=== PATIENT | male | born 1980 | race Caucasian/White ===

== ENCOUNTER 2018-12-16 13:00 | Outpatient (RCR) | payer BC ==
[2018-11-04 13:44] LABS: HEMATOCRIT 42.8 % (42.0-52.0); HEMOGLOBIN 13.7 g/dl (13.5-18.0); MEAN CELL VOLUME 89 fl (80.0-100.0); MEAN CORPUSCULAR HEMOGLOBIN 28 pg (27.0-31.0); MEAN CORPUSCULAR HGB CONC 32 g/dl (33.0-37.0); MEAN PLATELET VOLUME 11.2 fl (7.4-10.4); PLATELET COUNT 263 K/mm3 (130-400); RED BLOOD COUNT 4.82 M/mm3 (4.20-5.60); REDCELL DISTRIBUTION WIDTH-CV 15.2 % (11.5-14.5)
[2018-11-04 13:55] LABS: BILIRUBIN,TOTAL 0.3 mg/dL (0.0-1.0); CALCIUM 9.1 mg/dL (8.4-10.2); CREATININE, serum 0.82 (0.66-1.25); POTASSIUM 4.1 mmol/L (3.4-5.0); TOTAL PROTEIN 7.4 gm/dL (6.4-8.2)
[2018-11-04 15:00] VITALS: BP 132/80; PULSE 84; TEMP 98.7
[2018-11-18 13:00] VITALS: BP 124/82; PULSE 85; TEMP 98.7
[2018-11-18 13:27] LABS: HEMATOCRIT 42.4 % (42.0-52.0); HEMOGLOBIN 13.3 g/dl (13.5-18.0); MEAN CELL VOLUME 90 fl (80.0-100.0); MEAN CORPUSCULAR HEMOGLOBIN 28 pg (27.0-31.0); MEAN CORPUSCULAR HGB CONC 31 g/dl (33.0-37.0); MEAN PLATELET VOLUME 11.5 fl (7.4-10.4); PLATELET COUNT 203 K/mm3 (130-400); RED BLOOD COUNT 4.72 M/mm3 (4.20-5.60); REDCELL DISTRIBUTION WIDTH-CV 15.8 % (11.5-14.5)
[2018-11-18 13:38] LABS: BILIRUBIN,TOTAL 0.5 mg/dL (0.0-1.0); CREATININE, serum 0.93 (0.66-1.25); POTASSIUM 3.9 mmol/L (3.4-5.0); TOTAL PROTEIN 7.3 gm/dL (6.4-8.2)
--- NOTE | 2018-11-18 15:28 | NUR ---
Pt has no signs or symptoms of an adverse reaction after this infusion. Encouraged pt to watch closely for hives and weight gain by stopping his supplements, daily weights and when hives appear. Pt aware.
[~2018-12-16] VITALS: Ht 180.3 cm; Wt 86.5 kg
[~2018-12-16 13:00] MED LIST: ADDERALL10 MG PO; APRISO0.375 GM PO; ASACOL; ASACOL PO; HUMIRA40 MG/0.1 SC; IMURAN 50MG TAB50 MG PO; LEXAPRO 10MG10 MG PO; LIALDA 1.2 GM1.2 GM PO; MULTI VITAMINS1 TAB PO; MULTIPLE VITAMI1 CAP PO; NORCO 325 MG-51 TAB PO; NORCO 325 MG-7.1 TAB PO; OMEGA-3 1000 MG1 CAP PO; PREDNISONE 5MG5 MG PO; ULTRAM 50MG TAB50 MG PO; [UNRECOGNIZED DRUG - OTHER]; [UNRECOGNIZED DRUG - OTHER]
[2018-12-16 13:23] LABS: HEMATOCRIT 44.4 % (42.0-52.0); HEMOGLOBIN 14.2 g/dl (13.5-18.0); MEAN CELL VOLUME 89 fl (80.0-100.0); MEAN CORPUSCULAR HEMOGLOBIN 29 pg (27.0-31.0); MEAN CORPUSCULAR HGB CONC 32 g/dl (33.0-37.0); MEAN PLATELET VOLUME 11.2 fl (7.4-10.4); PLATELET COUNT 234 K/mm3 (130-400); RED BLOOD COUNT 4.99 M/mm3 (4.20-5.60); REDCELL DISTRIBUTION WIDTH-CV 14.3 % (11.5-14.5)
[2018-12-16 13:27] LABS: ALBUMIN 4.3 gm/dL (3.5-5.0); BILIRUBIN,TOTAL 0.4 mg/dL (0.0-1.0); CALCIUM 9.2 mg/dL (8.4-10.2); CREATININE, serum 0.97 (0.66-1.25); POTASSIUM 3.9 mmol/L (3.4-5.0); TOTAL PROTEIN 7.8 gm/dL (6.4-8.2)
[2018-12-16 15:20] VITALS: BP 125/75; PULSE 81; TEMP 98.3
[2018-12-16 15:50] VITALS: BP 128/79; PULSE 86; TEMP 98.3
== END 2018-12-16 16:00 | disposition home or self-care (01) ==
LOC: EUO 13:00
PROVIDERS: Internal Medicine Gastroenterology
DX: K51.90 Ulcerative colitis, unspecified, without complications (principal); Z79.899 Other long term (current) drug therapy
CPT/HCPCS: J1200; J2920; J3380; J7050

== ENCOUNTER → 2019-02-17 | Outpatient (CLI) | payer BC ==
[~2019-02-17] VITALS: Ht 180.3 cm; Wt 92.0 kg
[2019-02-17 13:14] LABS: HEMATOCRIT 42.1 % (42.0-52.0); HEMOGLOBIN 13.4 g/dl (13.5-18.0); MEAN CELL VOLUME 88 fl (80.0-100.0); MEAN CORPUSCULAR HEMOGLOBIN 28 pg (27.0-31.0); MEAN CORPUSCULAR HGB CONC 32 g/dl (33.0-37.0); MEAN PLATELET VOLUME 12.2 fl (7.4-10.4); PLATELET COUNT 179 K/mm3 (130-400); REDCELL DISTRIBUTION WIDTH-CV 13.3 % (11.5-14.5)
[2019-02-17 13:22] LABS: ALBUMIN 4.2 gm/dL (3.5-5.0); BILIRUBIN,TOTAL 0.4 mg/dL (0.0-1.0); CREATININE, serum 0.76 (0.66-1.25); POTASSIUM 3.9 mmol/L (3.4-5.0); TOTAL PROTEIN 7.4 gm/dL (6.4-8.2)
[2019-02-17 14:10] VITALS: BP 120/75; PULSE 72; TEMP 97.8
== END ==
LOC: EUO 12:40
PROVIDERS: Internal Medicine Gastroenterology
DX: K51.90 Ulcerative colitis, unspecified, without complications (principal); Z79.899 Other long term (current) drug therapy
CPT/HCPCS: J1200; J2930; J3380; J7050

== ENCOUNTER 2019-04-14 12:40 | Outpatient (CLI) | payer BC ==
[~2019-04-14] VITALS: Ht 180.3 cm; Wt 95.4 kg
[2019-04-14 13:05] LABS: HEMATOCRIT 42.2 % (42.0-52.0); MEAN CELL VOLUME 86 fl (80.0-100.0); MEAN CORPUSCULAR HEMOGLOBIN 29 pg (27.0-31.0); MEAN CORPUSCULAR HGB CONC 33 g/dl (33.0-37.0); MEAN PLATELET VOLUME 11.5 fl (7.4-10.4); PLATELET COUNT 224 K/mm3 (130-400); RED BLOOD COUNT 4.89 M/mm3 (4.20-5.60); REDCELL DISTRIBUTION WIDTH-CV 14.2 % (11.5-14.5)
[2019-04-14 13:16] LABS: ALBUMIN 4.2 gm/dL (3.5-5.0); BILIRUBIN,TOTAL 0.4 mg/dL (0.0-1.0); CALCIUM 9.1 mg/dL (8.4-10.2); CREATININE, serum 0.81 (0.66-1.25); TOTAL PROTEIN 7.2 gm/dL (6.4-8.2)
[2019-04-14 14:32] VITALS: BP 115/70; PULSE 65; TEMP 98
[2019-04-14 15:00] VITALS: BP 107/66; PULSE 70; TEMP 97
== END 2019-04-14 15:17 | disposition home or self-care (01) ==
LOC: EUO 12:40
PROVIDERS: Internal Medicine Gastroenterology
DX: K51.90 Ulcerative colitis, unspecified, without complications (principal); Z79.899 Other long term (current) drug therapy
CPT/HCPCS: J1200; J2930; J3380; J7050

== ENCOUNTER 2019-06-13 08:55 | Outpatient (CLI) | payer BC ==
[~2019-06-13] VITALS: Ht 180.3 cm; Wt 95.9 kg
[2019-06-13 09:25] VITALS: BP 108/53; PULSE 70; TEMP 98.4
[2019-06-13 09:31] LABS: HEMATOCRIT 44.5 % (42.0-52.0); HEMOGLOBIN 14.6 g/dl (13.5-18.0); MEAN CELL VOLUME 87 fl (80.0-100.0); MEAN CORPUSCULAR HEMOGLOBIN 29 pg (27.0-31.0); MEAN CORPUSCULAR HGB CONC 33 g/dl (33.0-37.0); MEAN PLATELET VOLUME 11.8 fl (7.4-10.4); PLATELET COUNT 209 K/mm3 (130-400); RED BLOOD COUNT 5.13 M/mm3 (4.20-5.60); REDCELL DISTRIBUTION WIDTH-CV 12.9 % (11.5-14.5)
[2019-06-13 09:43] LABS: ALBUMIN 4.1 gm/dL (3.5-5.0); BILIRUBIN,TOTAL 0.6 mg/dL (0.0-1.0); CALCIUM 9.1 mg/dL (8.4-10.2); CREATININE, serum 0.84 (0.66-1.25); POTASSIUM 4.3 mmol/L (3.4-5.0)
[2019-06-13 10:45] VITALS: BP 108/53; PULSE 70; TEMP 98.4
[2019-06-13 11:00] VITALS: BP 120/77; PULSE 55; TEMP 98
[2019-06-13 11:15] VITALS: BP 113/75; PULSE 65; TEMP 98.4
== END 2019-06-13 16:00 | disposition home or self-care (01) ==
LOC: EUO 08:55
PROVIDERS: Internal Medicine Gastroenterology
DX: K51.90 Ulcerative colitis, unspecified, without complications (principal); Z79.899 Other long term (current) drug therapy
CPT/HCPCS: J1200; J2920; J3380; J7050

== ENCOUNTER 2019-10-16 09:00 | Outpatient (RCR) | payer BC ==
[2019-10-08 14:15] LABS: HEMATOCRIT 44.9 % (42.0-52.0); HEMOGLOBIN 14.7 g/dl (13.5-18.0); MEAN CELL VOLUME 87 fl (80.0-100.0); MEAN CORPUSCULAR HEMOGLOBIN 28 pg (27.0-31.0); MEAN CORPUSCULAR HGB CONC 33 g/dl (33.0-37.0); MEAN PLATELET VOLUME 11.1 fl (7.4-10.4); PLATELET COUNT 234 K/mm3 (130-400); RED BLOOD COUNT 5.19 M/mm3 (4.20-5.60); REDCELL DISTRIBUTION WIDTH-CV 13.3 % (11.5-14.5)
[2019-10-08 14:24] LABS: ALBUMIN 4.6 gm/dL (3.5-5.0); BILIRUBIN,TOTAL 0.4 mg/dL (0.0-1.0); CALCIUM 9.2 mg/dL (8.4-10.2); CREATININE, serum 0.81 (0.66-1.25); TOTAL PROTEIN 7.9 gm/dL (6.4-8.2)
--- NOTE | 2019-10-08 15:00 | NUR ---
NOTIFIED FROM PHARMACY THAT THE PT'S MEDICATION DID NOT ARRIVE TO OUR PHARMACY AND WE ARE UNABLE TO INFUSE TODAY. PT AWARE AND WILL CALL HIS PHARMACY TO SEE WHAT HAPPENED. PT WILL BE RESCHEDULED FOR 10/16/2019. IV WAS DISCONTINUED WITH CATHETER TIP INTACT. LAB ORDERS WERE CANCELLED. PRE MEDICATIONS RETURNED TO [facility].
[~2019-10-16] VITALS: Ht 180.3 cm; Wt 98.6 kg
[2019-10-16 09:00] VITALS: BP 139/86; PULSE 70; TEMP 98.2
[2019-10-16] MEDS ORDERED: TYLENOL 8 HR PO (09:14)
== END 2019-10-16 19:05 | disposition home or self-care (01) ==
LOC: EUO 09:00
PROVIDERS: Internal Medicine Gastroenterology
DX: K51.90 Ulcerative colitis, unspecified, without complications (principal); Z79.899 Other long term (current) drug therapy
CPT/HCPCS: J1200; J2920; J3380; J7050

== ENCOUNTER 2019-12-11 09:54 | Outpatient (CLI) | payer BC ==
[~2019-12-11 09:54] MED LIST changes: +TYLENOL 8 HR PO
[2019-12-11 10:19] LABS: HEMATOCRIT 43.6 % (42.0-52.0); HEMOGLOBIN 14.2 g/dl (13.5-18.0); MEAN CELL VOLUME 88 fl (80.0-100.0); MEAN CORPUSCULAR HEMOGLOBIN 29 pg (27.0-31.0); MEAN CORPUSCULAR HGB CONC 33 g/dl (33.0-37.0); PLATELET COUNT 228 K/mm3 (130-400); RED BLOOD COUNT 4.98 M/mm3 (4.20-5.60); REDCELL DISTRIBUTION WIDTH-CV 12.9 % (11.5-14.5)
[2019-12-11 10:30] LABS: ALBUMIN 4.2 gm/dL (3.5-5.0); BILIRUBIN,TOTAL 0.4 mg/dL (0.0-1.0); CREATININE, serum 0.9 (0.66-1.25); POTASSIUM 4.4 mmol/L (3.4-5.0); TOTAL PROTEIN 7.3 gm/dL (6.4-8.2)
[2019-12-11 11:05] VITALS: BP 139/82; PULSE 65; TEMP 98.2
== END 2019-12-11 17:33 | disposition home or self-care (01) ==
LOC: EUO 09:54
PROVIDERS: Internal Medicine Gastroenterology
DX: K51.90 Ulcerative colitis, unspecified, without complications (principal); Z79.899 Other long term (current) drug therapy
CPT/HCPCS: J1200; J2920; J7050

== ENCOUNTER 2020-02-09 11:24 | Outpatient (CLI) | payer BC ==
[~2020-02-09] VITALS: Ht 180.3 cm; Wt 95.2 kg
[2020-02-09 11:46] LABS: HEMATOCRIT 43.2 % (42.0-52.0); HEMOGLOBIN 14.2 g/dl (13.5-18.0); MEAN CELL VOLUME 87 fl (80.0-100.0); MEAN CORPUSCULAR HEMOGLOBIN 29 pg (27.0-31.0); MEAN CORPUSCULAR HGB CONC 33 g/dl (33.0-37.0); PLATELET COUNT 245 K/mm3 (130-400); RED BLOOD COUNT 4.98 M/mm3 (4.20-5.60)
[2020-02-09 12:15] LABS: ALBUMIN 4.4 gm/dL (3.5-5.0); BILIRUBIN,TOTAL 0.5 mg/dL (0.0-1.0); CALCIUM 9.1 mg/dL (8.4-10.2); CREATININE, serum 0.89 (0.66-1.25); POTASSIUM 4.2 mmol/L (3.4-5.0); TOTAL PROTEIN 7.6 gm/dL (6.4-8.2)
[2020-02-09] MEDS ORDERED: ADDERALL10 MG PO (12:55)
[2020-02-09] MEDS ORDERED: FLEXERIL 1010 MG/TAB PO (12:55)
[2020-02-09] MEDS ORDERED: TYLENOL PO (12:56)
[2020-02-09] MEDS ORDERED: ADVIL PO (12:56)
[2020-02-09 12:57] VITALS: BP 134/88; PULSE 83; TEMP 98.7
[2020-02-09 13:20] VITALS: BP 144/85; PULSE 91; TEMP 98.7
== END 2020-02-09 13:25 | disposition home or self-care (01) ==
LOC: EUO 11:24
PROVIDERS: Internal Medicine Gastroenterology
DX: K51.90 Ulcerative colitis, unspecified, without complications (principal); Z79.899 Other long term (current) drug therapy
CPT/HCPCS: J1200; J2920; J3380; J7050

== ENCOUNTER 2020-04-05 13:48 | Outpatient (CLI) | payer BC ==
[~2020-04-05] VITALS: Ht 180.3 cm; Wt 94.3 kg
[~2020-04-05 13:48] MED LIST changes: +ADVIL PO; +FLEXERIL 1010 MG/TAB PO; +TYLENOL PO
[2020-04-05 14:17] LABS: HEMATOCRIT 43.1 % (42.0-52.0); HEMOGLOBIN 14.6 g/dl (13.5-18.0); MEAN CELL VOLUME 85 fl (80.0-100.0); MEAN CORPUSCULAR HEMOGLOBIN 29 pg (27.0-31.0); MEAN CORPUSCULAR HGB CONC 34 g/dl (33.0-37.0); MEAN PLATELET VOLUME 10.8 fl (7.4-10.4); PLATELET COUNT 307 K/mm3 (130-400); RED BLOOD COUNT 5.07 M/mm3 (4.20-5.60); REDCELL DISTRIBUTION WIDTH-CV 13.5 % (11.5-14.5)
[2020-04-05 14:27] LABS: ALBUMIN 4.6 gm/dL (3.5-5.0); BILIRUBIN,TOTAL 0.5 mg/dL (0.0-1.0); CALCIUM 9.3 mg/dL (8.4-10.2); CREATININE, serum 0.88 (0.66-1.25); POTASSIUM 3.7 mmol/L (3.4-5.0); TOTAL PROTEIN 7.8 gm/dL (6.4-8.2)
[2020-04-05 15:30] VITALS: BP 131/80; PULSE 83; TEMP 98.3
[2020-04-05 16:45] VITALS: BP 147/91; PULSE 82
[2020-04-05 17:00] VITALS: BP 146/81; PULSE 82
== END 2020-04-05 17:15 | disposition home or self-care (01) ==
LOC: EUO 13:48
PROVIDERS: Internal Medicine Gastroenterology
DX: K51.90 Ulcerative colitis, unspecified, without complications (principal); Z79.899 Other long term (current) drug therapy
CPT/HCPCS: J1200; J2920; J3380; J7050

== ENCOUNTER 2020-06-14 14:00 | Outpatient (RCR) | payer BC ==
[2020-06-07 13:43] LABS: HEMATOCRIT 40.6 % (42.0-52.0); HEMOGLOBIN 13.7 g/dl (13.5-18.0); MEAN CELL VOLUME 84 fl (80.0-100.0); MEAN CORPUSCULAR HEMOGLOBIN 28 pg (27.0-31.0); MEAN CORPUSCULAR HGB CONC 34 g/dl (33.0-37.0); MEAN PLATELET VOLUME 11.1 fl (7.4-10.4); PLATELET COUNT 279 K/mm3 (130-400); RED BLOOD COUNT 4.84 M/mm3 (4.20-5.60); REDCELL DISTRIBUTION WIDTH-CV 12.8 % (11.5-14.5)
[2020-06-07 14:04] LABS: ALBUMIN 4.2 gm/dL (3.5-5.0); BILIRUBIN,TOTAL 0.6 mg/dL (0.0-1.0); CALCIUM 8.8 mg/dL (8.4-10.2); CREATININE, serum 1.03 (0.66-1.25); POTASSIUM 3.9 mmol/L (3.4-5.0); TOTAL PROTEIN 7.2 gm/dL (6.4-8.2)
--- NOTE | 2020-06-07 14:23 | NUR ---
pt does not have med in pharmacy today, pt called his pharmacy/insurance provider, he spoke with them, confirmed phone numbers/address to hospital, drug is to arrive Sunday, pt appt will be jun 14 at 1400.
[~2020-06-14] VITALS: Ht 180.3 cm; Wt 98.0 kg
[~2020-06-14 14:00] MED LIST changes: +NEURONTIN300 MG/CAP PO
--- NOTE | 2020-06-14 14:34 | NUR ---
rEPORT TO Shraddha Shepherd.
[2020-06-14 14:39] VITALS: BP 143/93; PULSE 97; TEMP 98.7
[2020-06-14 15:22] VITALS: BP 141/90; PULSE 78; TEMP 98.7
== END 2020-06-14 15:26 | disposition home or self-care (01) ==
LOC: EUO 14:00
PROVIDERS: Internal Medicine Gastroenterology
DX: K51.90 Ulcerative colitis, unspecified, without complications (principal); Z79.899 Other long term (current) drug therapy
CPT/HCPCS: J1200; J2930; J3380; J7050

== ENCOUNTER 2020-08-09 13:50 | Outpatient (CLI) | payer BC ==
[~2020-08-09] VITALS: Ht 180.3 cm; Wt 100.4 kg
[2020-08-09 14:26] LABS: HEMATOCRIT 44.8 % (42.0-52.0); HEMOGLOBIN 14.1 g/dl (13.5-18.0); MEAN CELL VOLUME 86 fl (80.0-100.0); MEAN CORPUSCULAR HEMOGLOBIN 27 pg (27.0-31.0); MEAN CORPUSCULAR HGB CONC 32 g/dl (33.0-37.0); MEAN PLATELET VOLUME 10.8 fl (7.4-10.4); PLATELET COUNT 265 K/mm3 (130-400); RED BLOOD COUNT 5.19 M/mm3 (4.20-5.60)
[2020-08-09 14:49] LABS: ALBUMIN 4.3 gm/dL (3.5-5.0); BILIRUBIN,TOTAL 0.1 mg/dL (0.0-1.0); CALCIUM 9.4 mg/dL (8.4-10.2); CREATININE, serum 0.89 (0.66-1.25); POTASSIUM 3.9 mmol/L (3.4-5.0); TOTAL PROTEIN 7.9 gm/dL (6.4-8.2)
[2020-08-09 14:55] VITALS: BP 124/80; PULSE 78; TEMP 98.5
[2020-08-09] MEDS ORDERED: ENTYVIO IV (15:49)
== END 2020-08-09 15:50 | disposition home or self-care (01) ==
LOC: EUO 13:50
PROVIDERS: Internal Medicine Gastroenterology
DX: K50.90 Crohn's disease, unspecified, without complications (principal); Z79.899 Other long term (current) drug therapy
CPT/HCPCS: J1200; J2930; J3380; J7050

== ENCOUNTER 2020-10-04 13:45 | Outpatient (CLI) | payer BC ==
[~2020-10-04] VITALS: Ht 180.3 cm; Wt 98.0 kg
[~2020-10-04 13:45] MED LIST changes: +ENTYVIO IV
[2020-10-04 14:13] LABS: HEMATOCRIT 37.5 % (42.0-52.0); HEMOGLOBIN 12.1 g/dl (13.5-18.0); MEAN CELL VOLUME 84 fl (80.0-100.0); MEAN CORPUSCULAR HEMOGLOBIN 27 pg (27.0-31.0); MEAN CORPUSCULAR HGB CONC 32 g/dl (33.0-37.0); MEAN PLATELET VOLUME 10.7 fl (7.4-10.4); PLATELET COUNT 272 K/mm3 (130-400); RED BLOOD COUNT 4.49 M/mm3 (4.20-5.60)
[2020-10-04 14:23] LABS: ALBUMIN 3.7 gm/dL (3.5-5.0); BILIRUBIN,TOTAL 0.3 mg/dL (0.0-1.0); CALCIUM 8.5 mg/dL (8.4-10.2); CREATININE, serum 0.91 (0.66-1.25); POTASSIUM 3.8 mmol/L (3.4-5.0); TOTAL PROTEIN 6.7 gm/dL (6.4-8.2)
[2020-10-04] MEDS ORDERED: DESYREL 50MG50 MG PO (14:34)
[2020-10-04 14:35] VITALS: BP 122/73; PULSE 69; TEMP 98.5
[2020-10-04 15:22] VITALS: BP 122/77; PULSE 65
[2020-10-04 15:36] VITALS: BP 124/86; PULSE 60
== END 2020-10-04 16:35 | disposition home or self-care (01) ==
LOC: EUO 13:45
PROVIDERS: Internal Medicine Gastroenterology
DX: K50.90 Crohn's disease, unspecified, without complications (principal); Z79.899 Other long term (current) drug therapy
CPT/HCPCS: J1200; J2920; J3380; J7050

== ENCOUNTER 2020-12-06 13:18 | Outpatient (CLI) | payer BC ==
[~2020-12-06] VITALS: Ht 180.3 cm; Wt 90.9 kg
[~2020-12-06 13:18] MED LIST changes: +DESYREL 50MG50 MG PO
[2020-12-06 14:18] LABS: HEMATOCRIT 39.7 % (42.0-52.0); HEMOGLOBIN 12.7 g/dl (13.5-18.0); MEAN CELL VOLUME 83 fl (80.0-100.0); MEAN CORPUSCULAR HEMOGLOBIN 27 pg (27.0-31.0); MEAN CORPUSCULAR HGB CONC 32 g/dl (33.0-37.0); MEAN PLATELET VOLUME 10.8 fl (7.4-10.4); PLATELET COUNT 286 K/mm3 (130-400); RED BLOOD COUNT 4.76 M/mm3 (4.20-5.60); REDCELL DISTRIBUTION WIDTH-CV 14.9 % (11.5-14.5)
[2020-12-06 14:23] LABS: ALBUMIN 4.1 gm/dL (3.5-5.0); BILIRUBIN,TOTAL 0.4 mg/dL (0.0-1.0); CALCIUM 8.6 mg/dL (8.4-10.2); CREATININE, serum 0.99 (0.66-1.25); POTASSIUM 4.1 mmol/L (3.4-5.0); TOTAL PROTEIN 6.8 gm/dL (6.4-8.2)
[2020-12-06 15:02] VITALS: BP 132/80; PULSE 84; TEMP 98.7
[2020-12-06] MEDS ORDERED: PREDNISONE 5MG5 MG PO (15:08)
[2020-12-06 15:35] VITALS: BP 134/79; PULSE 76
== END 2020-12-06 19:16 | disposition home or self-care (01) ==
LOC: EUO 13:18
PROVIDERS: Internal Medicine Gastroenterology
DX: K51.90 Ulcerative colitis, unspecified, without complications (principal)
CPT/HCPCS: J1200; J3380; J7050

== ENCOUNTER 2021-01-31 10:46 | Outpatient (CLI) | payer BC ==
[~2021-01-31] VITALS: Ht 180.3 cm; Wt 91.9 kg
[2021-01-31 11:15] LABS: HEMATOCRIT 41.2 % (42.0-52.0); HEMOGLOBIN 12.9 g/dl (13.5-18.0); MEAN CELL VOLUME 86 fl (80.0-100.0); MEAN CORPUSCULAR HEMOGLOBIN 27 pg (27.0-31.0); MEAN CORPUSCULAR HGB CONC 31 g/dl (33.0-37.0); MEAN PLATELET VOLUME 10.8 fl (7.4-10.4); PLATELET COUNT 256 K/mm3 (130-400); RED BLOOD COUNT 4.82 M/mm3 (4.20-5.60); REDCELL DISTRIBUTION WIDTH-CV 15.1 % (11.5-14.5)
[2021-01-31 11:37] LABS: ALBUMIN 3.9 gm/dL (3.5-5.0); BILIRUBIN,TOTAL 0.3 mg/dL (0.0-1.0); CALCIUM 8.4 mg/dL (8.4-10.2); CREATININE, serum 0.93 (0.66-1.25); POTASSIUM 3.7 mmol/L (3.4-5.0)
[2021-01-31 12:39] VITALS: BP 118/77; PULSE 73; TEMP 98.4
== END 2021-01-31 13:15 | disposition home or self-care (01) ==
LOC: EUO 10:46
PROVIDERS: Internal Medicine Gastroenterology
DX: Z79.899 Other long term (current) drug therapy (principal)
CPT/HCPCS: J1200; J2920; J3380; J7050

== ENCOUNTER 2021-03-28 13:38 | Outpatient (CLI) | payer BC ==
[~2021-03-28] VITALS: Ht 180.3 cm; Wt 96.0 kg
[2021-03-28 14:28] LABS: HEMATOCRIT 41.8 % (42.0-52.0); HEMOGLOBIN 13.5 g/dl (13.5-18.0); MEAN CELL VOLUME 85 fl (80.0-100.0); MEAN CORPUSCULAR HEMOGLOBIN 27 pg (27.0-31.0); MEAN CORPUSCULAR HGB CONC 32 g/dl (33.0-37.0); MEAN PLATELET VOLUME 11.1 fl (7.4-10.4); PLATELET COUNT 247 K/mm3 (130-400); RED BLOOD COUNT 4.92 M/mm3 (4.20-5.60); REDCELL DISTRIBUTION WIDTH-CV 14.4 % (11.5-14.5)
[2021-03-28 14:45] LABS: ALBUMIN 3.8 gm/dL (3.5-5.0); BILIRUBIN,TOTAL 0.4 mg/dL (0.2-1.2); CALCIUM 9.2 mg/dL (8.4-10.2); CREATININE, serum 0.93 mg/dL (0.72-1.25); POTASSIUM 3.8 mmol/L (3.5-4.5); TOTAL PROTEIN 7.2 gm/dL (6.2-8.1)
[2021-03-28] MEDS ORDERED: ENTOCORT EC3 MG PO (15:17)
[2021-03-28] MEDS ORDERED: IMURAN 50MG TAB50 MG PO (15:18)
[2021-03-28 15:36] VITALS: BP 127/80; PULSE 78; TEMP 98.5
== END 2021-03-28 16:11 | disposition home or self-care (01) ==
LOC: EUO 13:38
PROVIDERS: Internal Medicine Gastroenterology
DX: K51.019 Ulcerative (chronic) pancolitis with unspecified complications (principal)
CPT/HCPCS: J1200; J2920; J3380; J7050

== ENCOUNTER 2021-05-23 12:30 | Outpatient (CLI) | payer BC ==
[~2021-05-23] VITALS: Ht 180.3 cm; Wt 101.4 kg
[~2021-05-23 12:30] MED LIST changes: +ENTOCORT EC3 MG PO
[2021-05-23 12:53] LABS: BASO # 0.1 K/mm3 (0.0-0.2); BASO % 0.7 % (0.0-2.0); EOS # 0.5 K/mm3 (0.0-0.7); EOS % 7.5 % (0.0-4.0); GRAN # 4.4 K/mm3 (1.4-6.5); GRAN % 63.7 % (42.2-75.2); HEMATOCRIT 40.9 % (42.0-52.0); HEMOGLOBIN 12.8 g/dl (13.5-18.0); LYMPH # 1.4 K/mm3 (1.2-3.4); LYMPH % 19.9 % (20.0-51.0); MEAN CELL VOLUME 88 fl (80.0-100.0); MEAN CORPUSCULAR HEMOGLOBIN 28 pg (27-31); MEAN CORPUSCULAR HGB CONC 31 g/dl (33.0-37.0); MEAN PLATELET VOLUME 10.8 fl (7.4-10.4); MONO # 0.5 K/mm3 (0.1-0.6); MONO % 7.9 % (1.7-9.3); PLATELET COUNT 255 K/mm3 (130-400); RED BLOOD COUNT 4.63 M/mm3 (4.20-5.60)
[2021-05-23] MEDS ORDERED: NORCO 325 MG-51 TAB PO (12:55)
[2021-05-23] MEDS ORDERED: FLEXERIL 1010 MG/TAB PO (12:56)
[2021-05-23 13:05] VITALS: BP 134/91; PULSE 81; TEMP 98.4
[2021-05-23 13:08] LABS: ALBUMIN 3.8 gm/dL (3.5-5.0); BILIRUBIN,TOTAL 0.4 mg/dL (0.2-1.2); CALCIUM 8.4 mg/dL (8.4-10.2); CREATININE, serum 0.94 mg/dL (0.72-1.25); POTASSIUM 3.8 mmol/L (3.5-4.5); TOTAL PROTEIN 6.9 gm/dL (6.2-8.1)
[2021-05-23 14:40] VITALS: BP 125/82; PULSE 81; TEMP 98.3
== END 2021-05-23 15:00 | disposition home or self-care (01) ==
LOC: EUO 12:30
PROVIDERS: Internal Medicine Gastroenterology
DX: K51.00 Ulcerative (chronic) pancolitis without complications (principal)
CPT/HCPCS: J1200; J2930; J3380; J7050

== ENCOUNTER 2021-07-26 12:55 | Outpatient (CLI) | payer BC ==
[~2021-07-26] VITALS: Ht 180.3 cm; Wt 100.0 kg
[2021-07-26 13:29] LABS: BASO # 0.1 K/mm3 (0.0-0.2); BASO % 0.6 % (0.0-2.0); EOS # 0.3 K/mm3 (0.0-0.7); EOS % 2.7 % (0.0-4.0); GRAN # 8.1 K/mm3 (1.4-6.5); GRAN % 80.4 % (42.2-75.2); HEMATOCRIT 39.8 % (42.0-52.0); HEMOGLOBIN 13.2 g/dl (13.5-18.0); LYMPH # 1.1 K/mm3 (1.2-3.4); LYMPH % 11.1 % (20.0-51.0); MEAN CELL VOLUME 84 fl (80.0-100.0); MEAN CORPUSCULAR HEMOGLOBIN 28 pg (27-31); MEAN CORPUSCULAR HGB CONC 33 g/dl (33.0-37.0); MEAN PLATELET VOLUME 10.6 fl (7.4-10.4); MONO # 0.5 K/mm3 (0.1-0.6); MONO % 4.9 % (1.7-9.3); PLATELET COUNT 283 K/mm3 (130-400); RED BLOOD COUNT 4.75 M/mm3 (4.20-5.60); REDCELL DISTRIBUTION WIDTH-CV 13.6 % (11.5-14.5)
[2021-07-26 13:43] LABS: ALBUMIN 3.8 gm/dL (3.5-5.0); BILIRUBIN,TOTAL 0.4 mg/dL (0.2-1.2); CALCIUM 9.1 mg/dL (8.4-10.2); CREATININE, serum 0.98 mg/dL (0.72-1.25); POTASSIUM 4.2 mmol/L (3.5-4.5); TOTAL PROTEIN 7.2 gm/dL (6.2-8.1)
[2021-07-26 14:15] VITALS: BP 126/82; PULSE 90; TEMP 98.7
== END 2021-07-26 15:00 | disposition home or self-care (01) ==
LOC: EUO 12:55
PROVIDERS: Internal Medicine Gastroenterology
DX: Z79.899 Other long term (current) drug therapy (principal)
CPT/HCPCS: J1200; J2920; J3380; J7050

== ENCOUNTER 2021-09-20 13:53 | Outpatient (CLI) | payer BC ==
[~2021-09-20] VITALS: Ht 180.3 cm; Wt 100.0 kg
[2021-09-20 14:22] LABS: HEMOGLOBIN 13.5 g/dl (13.5-18.0); MEAN CELL VOLUME 85 fl (80.0-100.0); MEAN CORPUSCULAR HEMOGLOBIN 28 pg (27-31); MEAN CORPUSCULAR HGB CONC 33 g/dl (33.0-37.0); MEAN PLATELET VOLUME 10.7 fl (7.4-10.4); PLATELET COUNT 276 K/mm3 (130-400); RED BLOOD COUNT 4.82 M/mm3 (4.20-5.60); REDCELL DISTRIBUTION WIDTH-CV 14.5 % (11.5-14.5)
[2021-09-20 14:37] LABS: ALBUMIN 4.1 gm/dL (3.5-5.0); BILIRUBIN,TOTAL 0.4 mg/dL (0.2-1.2); CALCIUM 8.9 mg/dL (8.4-10.2); CREATININE, serum 1.09 mg/dL (0.72-1.25); POTASSIUM 3.9 mmol/L (3.5-4.5); TOTAL PROTEIN 7.2 gm/dL (6.2-8.1)
[2021-09-20 14:42] LABS: BAND 1 % (0-10); LYMPHOCYTE 4 % (20.0-51.0); NEUTROPHILS 95 % (42.0-75.2)
[2021-09-20 14:43] LABS: PLATELET ESTIMATE NORMAL (NORMAL)
[2021-09-20 15:15] VITALS: BP 126/82; PULSE 90; TEMP 98.4
== END 2021-09-20 16:00 | disposition home or self-care (01) ==
LOC: EUO 13:53
PROVIDERS: Internal Medicine Gastroenterology
DX: K51.00 Ulcerative (chronic) pancolitis without complications (principal)
CPT/HCPCS: J1200; J2930; J3380; J7050

== ENCOUNTER 2022-01-17 11:10 | Outpatient (CLI) | payer BC ==
[~2022-01-17 11:10] MED LIST changes: +TORADOL 10MG TA10 MG PO
[2022-01-17 11:37] LABS: BASO # 0.1 K/mm3 (0.0-0.2); BASO % 0.7 % (0.0-2.0); EOS # 0.4 K/mm3 (0.0-0.7); EOS % 5.5 % (0.0-4.0); GRAN % 69.5 % (42.2-75.2); HEMATOCRIT 40.9 % (42.0-52.0); HEMOGLOBIN 13.6 g/dl (13.5-18.0); LYMPH # 1.2 K/mm3 (1.2-3.4); MEAN CELL VOLUME 87 fl (80.0-100.0); MEAN CORPUSCULAR HEMOGLOBIN 29 pg (27-31); MEAN CORPUSCULAR HGB CONC 33 g/dl (33.0-37.0); MEAN PLATELET VOLUME 11.1 fl (7.4-10.4); MONO # 0.5 K/mm3 (0.1-0.6); PLATELET COUNT 232 K/mm3 (130-400); REDCELL DISTRIBUTION WIDTH-CV 13.2 % (11.5-14.5)
[2022-01-17 11:57] LABS: ALBUMIN 3.6 gm/dL (3.5-5.0); BILIRUBIN,TOTAL 0.4 mg/dL (0.2-1.2); CALCIUM 9.1 mg/dL (8.4-10.2); CREATININE, serum 0.96 mg/dL (0.72-1.25); POTASSIUM 3.8 mmol/L (3.5-4.5); TOTAL PROTEIN 6.7 gm/dL (6.2-8.1)
[2022-01-17 12:40] VITALS: BP 129/89; PULSE 86; TEMP 97.9
[2022-01-17 12:50] VITALS: BP 127/87; PULSE 71
[2022-01-17 13:05] VITALS: BP 146/94; PULSE 80
[2022-01-17 13:20] VITALS: BP 137/90; PULSE 86
== END 2022-01-17 16:40 | disposition home or self-care (01) ==
LOC: EUO 11:10
PROVIDERS: Internal Medicine Gastroenterology
DX: K51.00 Ulcerative (chronic) pancolitis without complications (principal)
CPT/HCPCS: J1200; J2920; J3380; J7050

== ENCOUNTER 2022-03-21 08:44 | Outpatient (CLI) | payer BC ==
[2022-03-21 09:18] LABS: BASO % 0.6 % (0.0-2.0); EOS # 0.3 K/mm3 (0.0-0.7); EOS % 4.8 % (0.0-4.0); GRAN # 4.5 K/mm3 (1.4-6.5); GRAN % 71.3 % (42.2-75.2); HEMATOCRIT 45.9 % (42.0-52.0); HEMOGLOBIN 15.2 g/dl (13.5-18.0); LYMPH % 16.6 % (20.0-51.0); MEAN CELL VOLUME 88 fl (80.0-100.0); MEAN CORPUSCULAR HEMOGLOBIN 29 pg (27-31); MEAN CORPUSCULAR HGB CONC 33 g/dl (33.0-37.0); MEAN PLATELET VOLUME 11.2 fl (7.4-10.4); MONO # 0.4 K/mm3 (0.1-0.6); MONO % 6.4 % (1.7-9.3); PLATELET COUNT 255 K/mm3 (130-400); RED BLOOD COUNT 5.21 M/mm3 (4.20-5.60); REDCELL DISTRIBUTION WIDTH-CV 13.7 % (11.5-14.5)
[2022-03-21 09:37] LABS: ALBUMIN 4.1 gm/dL (3.5-5.0); BILIRUBIN,TOTAL 0.6 mg/dL (0.2-1.2); CALCIUM 9.2 mg/dL (8.4-10.2); CREATININE, serum 0.99 mg/dL (0.72-1.25); POTASSIUM 3.8 mmol/L (3.5-4.5); TOTAL PROTEIN 7.5 gm/dL (6.2-8.1)
[2022-03-21 10:35] VITALS: BP 132/90; PULSE 85; TEMP 97.9
== END 2022-03-21 12:03 ==
LOC: EUO 08:44
PROVIDERS: Internal Medicine Gastroenterology
DX: Z79.899 Other long term (current) drug therapy (principal)
CPT/HCPCS: J1200; J2920; J3380; J7050

== ENCOUNTER 2022-09-11 13:19 | Outpatient (CLI) | payer BC ==
[~2022-09-11 13:19] MED LIST changes: +PRILOSEC 20MG20 MG PO
[2022-09-11 13:42] LABS: BASO # 0.1 K/mm3 (0.0-0.2); BASO % 0.6 % (0.0-2.0); EOS # 0.5 K/mm3 (0.0-0.7); GRAN % 73.9 % (42.2-75.2); HEMATOCRIT 43.3 % (42.0-52.0); HEMOGLOBIN 14.6 g/dl (13.5-18.0); LYMPH # 1.6 K/mm3 (1.2-3.4); LYMPH % 14.6 % (20.0-51.0); MEAN CELL VOLUME 86 fl (80.0-100.0); MEAN CORPUSCULAR HEMOGLOBIN 29 pg (27-31); MEAN CORPUSCULAR HGB CONC 34 g/dl (33.0-37.0); MEAN PLATELET VOLUME 10.8 fl (7.4-10.4); MONO # 0.6 K/mm3 (0.1-0.6); MONO % 5.8 % (1.7-9.3); PLATELET COUNT 264 K/mm3 (130-400); RED BLOOD COUNT 5.01 M/mm3 (4.20-5.60); REDCELL DISTRIBUTION WIDTH-CV 12.8 % (11.5-14.5)
[2022-09-11 13:59] LABS: ALBUMIN 4.1 gm/dL (3.5-5.0); BILIRUBIN,TOTAL 0.5 mg/dL (0.2-1.2); CALCIUM 9.4 mg/dL (8.4-10.2); CREATININE, serum 0.85 mg/dL (0.72-1.25); POTASSIUM 3.7 mmol/L (3.5-4.5); TOTAL PROTEIN 7.4 gm/dL (6.2-8.1)
[2022-09-11 14:01] VITALS: BP 121/86; PULSE 76; TEMP 98.2
== END 2022-09-11 15:24 ==
LOC: EUO 13:19
PROVIDERS: Internal Medicine Gastroenterology
DX: Z51.81 Encounter for therapeutic drug level monitoring (principal)
CPT/HCPCS: J1200; J2930; J3380; J7050

== ENCOUNTER 2023-02-26 13:49 | Outpatient (CLI) | payer BC ==
[~2023-02-26] VITALS: Ht 180.3 cm; Wt 93.6 kg
[2023-02-26 14:23] LABS: BASO # 0.1 K/mm3 (0.0-0.2); BASO % 0.9 % (0.0-2.0); EOS # 0.4 K/mm3 (0.0-0.7); EOS % 4.2 % (0.0-4.0); GRAN # 6.1 K/mm3 (1.4-6.5); GRAN % 67.4 % (42.2-75.2); HEMATOCRIT 41.4 % (42.0-52.0); HEMOGLOBIN 13.7 g/dl (13.5-18.0); LYMPH # 1.8 K/mm3 (1.2-3.4); LYMPH % 19.6 % (20.0-51.0); MEAN CELL VOLUME 88 fl (80.0-100.0); MEAN CORPUSCULAR HEMOGLOBIN 29 pg (27-31); MEAN CORPUSCULAR HGB CONC 33 g/dl (33.0-37.0); MEAN PLATELET VOLUME 10.3 fl (7.4-10.4); MONO # 0.7 K/mm3 (0.1-0.6); MONO % 7.5 % (1.7-9.3); PLATELET COUNT 260 K/mm3 (130-400); RED BLOOD COUNT 4.72 M/mm3 (4.20-5.60); REDCELL DISTRIBUTION WIDTH-CV 14.2 % (11.5-14.5)
[2023-02-26 14:24] VITALS: BP 125/81; PULSE 80; TEMP 98.6
[2023-02-26] MEDS ORDERED: PREDNISONE 5MG5 MG PO (14:25)
[2023-02-26] MEDS ORDERED: ENTYVIO IV (14:25)
[2023-02-26] MEDS ORDERED: SAXENDA6 MG/ML SQ (14:26)
[2023-02-26] MEDS ORDERED: LEXAPRO 10MG10 MG PO (14:26)
[2023-02-26] MEDS ORDERED: DESYREL 100MG100 MG PO (14:26)
[2023-02-26 14:41] LABS: ALBUMIN 3.3 gm/dL (3.5-5.0); BILIRUBIN,TOTAL 0.5 mg/dL (0.2-1.2); CALCIUM 9.1 mg/dL (8.4-10.2); CREATININE, serum 0.9 mg/dL (0.72-1.25); POTASSIUM 4.3 mmol/L (3.5-4.5); TOTAL PROTEIN 6.7 gm/dL (6.2-8.1)
--- NOTE | 2023-02-26 15:30 | NUR ---
Pt tolerated infusion without issue. IV DC'd, site wrapped with coban. Pt exits dept with steady gait.
== END 2023-02-26 15:30 | disposition home or self-care (01) ==
LOC: EUO 13:49
PROVIDERS: Internal Medicine Gastroenterology
DX: K51.00 Ulcerative (chronic) pancolitis without complications (principal)
CPT/HCPCS: J1200; J3380; J7050